=== PATIENT | male | born 1980 | race Caucasian/White ===

== ENCOUNTER 2019-05-24 03:33 | Emergency (ER) | payer MEDICAID ==
[~2019-05-24] VITALS: Ht 188 cm; Wt 99.8 kg
[2019-05-24 03:39] VITALS: Ht 188 cm; Wt 99.8 kg
[2019-05-24 04:55] VITALS: BP 133/80
== END 2019-05-24 04:55 | disposition home or self-care (01) ==
LOC: ED 03:33
DX: F41.9 Anxiety disorder, unspecified (principal); I10 Essential (primary) hypertension

== ENCOUNTER 2019-05-28 11:17 | Emergency (ER) | payer MEDICAID ==
[~2019-05-28] VITALS: Ht 190.5 cm; Wt 97.1 kg
[2019-05-28 11:25] VITALS: Ht 190.5 cm; Wt 97.1 kg
[2019-05-28 12:43] LABS: CALCIUM 8.9 mg/dL (8.5-10.1); CARBON DIOXIDE 26.5 mmol/L (21-32); CHLORIDE SERUM 106 mmol/L (98-107); GFR1 > 60 mL/min; GLUCOSE SERUM 94 mg/dL (74-106); POTASSIUM SERUM 3.6 mmol/L (3.5-5.1); SODIUM SERUM 143 mmol/L (136-145)
[2019-05-28 12:48] LABS: ALKALINE PHOSPHATASE 77 U/L (46-116); ALT/SGPT 26 U/L (16-63); AST/SGOT 18 U/L (15-37); BILIRUBIN TOTAL 1.4 mg/dL (0.20-1.00); CHOLESTEROL 156 mg/dL (<200); HDL CHOLESTEROL 46 mg/dL (40-60); LIPASE 129 IU/L (73-393)
[2019-05-28 13:09] LABS: BASOPHIL % 0.2 % (0-2); PLATELET COUNT 309 x10^3mcL (130-400); RED CELL DISTRIBUTION WIDTH 12.8 % (11.5-14.5)
[2019-05-28 13:24] LABS: AMPHETAMINE QUAL UR NONE DETECTED (See below)
[2019-05-28 13:30] LABS: UA SPECIFIC GRAVITY >=1.030 (1.005-1.035); microscopic required? YES; urine erythrocyte TRACE (NEGATIVE)
[2019-05-28 13:55] VITALS: BP 128/83
== END 2019-05-28 13:55 | disposition home or self-care (01) ==
LOC: ED 11:17
PROVIDERS: Emergency Medicine
DX: R06.02 Shortness of breath (principal); R61 Generalized hyperhidrosis; I10 Essential (primary) hypertension; R42 Dizziness and giddiness; R53.1 Weakness; R53.83 Other fatigue; Z20.828 Contact with and (suspected) exposure to other viral communicable diseases
CPT/HCPCS: 83880; 87804; Q0092; U0002

== ENCOUNTER 2019-08-22 18:35 | Emergency (ER) | payer MEDICAID, SELFPAY ==
[~2019-08-22] VITALS: Ht 185.4 cm; Wt 97.5 kg
[2019-08-22 19:01] VITALS: Ht 185.4 cm; Wt 97.5 kg
[2019-08-22 20:15] VITALS: BP 149/99
== END 2019-08-22 20:16 | disposition home or self-care (01) ==
LOC: ED 18:35
DX: U07.1 COVID-19 (principal); I10 Essential (primary) hypertension
CPT/HCPCS: U0003-CS

== ENCOUNTER 2019-10-06 15:56 | Emergency (ER) | payer MEDICAID, SELFPAY ==
[~2019-10-06] VITALS: Ht 188 cm; Wt 94.3 kg
[2019-10-06 16:00] VITALS: Ht 188 cm; Wt 94.3 kg
[2019-10-06 18:11] LABS: BASOPHIL % 0.5 % (0-2); PLATELET COUNT 309 x10^3mcL (130-400)
[2019-10-06 18:23] LABS: CALCIUM 8.7 mg/dL (8.5-10.1); CARBON DIOXIDE 32.3 mmol/L (21-32); CHLORIDE SERUM 102 mmol/L (98-107); GFR1 > 60 mL/min; GLUCOSE SERUM 94 mg/dL (74-106); POTASSIUM SERUM 3.9 mmol/L (3.5-5.1); SODIUM SERUM 139 mmol/L (136-145)
[2019-10-06 18:28] LABS: ALBUMIN 4.1 g/dL (3.4-5.0); ALKALINE PHOSPHATASE 92 U/L (46-116); ALT/SGPT 19 U/L (16-63); AST/SGOT 15 U/L (15-37); BILIRUBIN TOTAL 1.3 mg/dL (0.20-1.00)
[2019-10-06 19:04] VITALS: BP 149/97
== END 2019-10-06 19:05 | disposition home or self-care (01) ==
LOC: ED 15:56
PROVIDERS: Emergency Medicine
DX: R07.89 Other chest pain (principal); I10 Essential (primary) hypertension

== ENCOUNTER 2019-12-15 15:11 | Emergency (ER) | payer MEDICAID ==
[~2019-12-15] VITALS: Ht 188 cm; Wt 95.3 kg
[2019-12-15 15:26] VITALS: Ht 188 cm; Wt 95.3 kg
[2019-12-15 16:59] LABS: BASOPHIL % 0.6 % (0-2); PLATELET COUNT 285 x10^3mcL (130-400)
[2019-12-15 17:07] LABS: CALCIUM 8.5 mg/dL (8.5-10.1); CARBON DIOXIDE 30.8 mmol/L (21-32); CHLORIDE SERUM 106 mmol/L (98-107); GFR1 > 60 mL/min; GLUCOSE SERUM 94 mg/dL (74-106); POTASSIUM SERUM 3.7 mmol/L (3.5-5.1); SODIUM SERUM 136 mmol/L (136-145)
[2019-12-15 17:19] LABS: ALBUMIN 3.8 g/dL (3.4-5.0); ALKALINE PHOSPHATASE 92 U/L (46-116); ALT/SGPT 20 U/L (16-63); AST/SGOT 16 U/L (15-37); BILIRUBIN TOTAL 0.82 mg/dL (0.20-1.00); T4(THYROXINE) 8.6 ug/dL (4.7-13.3); TOTAL PROTEIN, SERUM 7.5 g/dL (6.4-8.2)
[2019-12-15 18:23] VITALS: BP 142/90
== END 2019-12-15 18:23 | disposition home or self-care (01) ==
LOC: ED 15:11
PROVIDERS: Emergency Medicine
DX: R51.9 Headache, unspecified (principal); I10 Essential (primary) hypertension; R42 Dizziness and giddiness; G47.00 Insomnia, unspecified